=== PATIENT | female | born 1960 ===

== ENCOUNTER 2017-04-29 15:38 | Emergency (ER) | payer OTHER ==
[2017-04-29 16:06] VITALS: TEMP 98.8; O2SAT 96
--- NOTE | 2017-04-29 17:14 | C.PDOC ---
History Of Present Illness 56 year old patient presents to the ED complaining of a cut to the dorsal aspect of her left foot prior to arrival. Patient states she tripped over a jewelry box on the floor. She notes she was bleeding profusely. Patient denies fever, numbness, weakness, or any other injuries. Time Seen by Provider: 04/29/17 16:34 Chief Complaint (Nursing): Abnormal Skin Integrity History Per: Patient History/Exam Limitations: no limitations Onset/Duration Of Symptoms: Other Current Symptoms Are (Timing): Still Present Quality Of Symptoms: Painful, Other (bleeding) Severity: Mild Pain Scale Rating Of: 3 Recent travel outside of the [place]: No Past Medical History Reviewed: Historical Data, Nursing Documentation, Vital Signs Vital Signs: Last Vital Signs Temp 98.8 F 04/29/17 16:05 Pulse 77 04/29/17 21:06 Resp 18 04/29/17 21:06 BP 143/85 04/29/17 21:06 Pulse Ox 96 05/02/17 13:31 - Medical History PMH: Asthma, HTN Surgical History: Appendectomy Family History: States: Unknown Family Hx - Social History Hx Alcohol Use: No Hx Substance Use: No - Immunization History Hx Tetanus Toxoid Vaccination: No Hx Influenza Vaccination: Yes Hx Pneumococcal Vaccination: No Review Of Systems Constitutional: Negative for: Fever Musculoskeletal: Positive for: Foot Pain (left) Skin: Positive for: Other (left foot laceration) Neurological: Negative for: Weakness, Numbness Physical Exam - Physical Exam Appears: Non-toxic, No Acute Distress Skin: Warm, Dry, Other (approx 5 cm laceration across dorsum of left foot; laceration shallow at proximal end, angles down and deeper at distal portion. swollen at site of laceration, clotted blood present. ) Extremity: Normal ROM Pulses: Left Dorsalis Pedis: Normal, Right Dorsalis Pedis: Normal Neurological/Psych: Oriented x3, Normal Speech, Normal Cognition, Normal Motor, Normal Sensation ED Course And Treatment O2 Sat by Pulse Oximetry: 96 (room air) Pulse Ox Interpretation: Normal Laceration - Laceration Repair left foot Wound Length (In cm): 5 Description Of Wound: Linear (shallow at proximal end, deeper at distal end) Wound Cleansed With: Betadine Anesthesia: Lidocaine 1% Wound Examination: Irrigated With Saline, No FB With Wound Exploration, No Tendon Injury With Wound Exploration Wound Closure: Suture (2 deep 4-0 absorbable, 6 sutures 4-0 ethilon) Suture Technique And Material Used: Interrupted Wound Complexity: Intermediate Disposition Counseled Patient/Family Regarding: Diagnosis, Need For Followup - Disposition Disposition: HOME/ ROUTINE Disposition Time: 20:50 Condition: STABLE Additional Instructions: Keep foot bandaged until tomorrow. Keep foot elevated when possible, apply cold compresses to foot, wear orthopedic shoe for comfort. Tylenol for pain if needed. Suture removal in 10 days. Return to ER for any bleeding or any other concerns. Instructions: Care For Your Stitches (ED), Laceration (ED) Forms: Gen Discharge Inst [place]ish Print Language: CITIZ[place] - Clinical Impression Clinical Impression: Laceration of foot, left, complicated - PA / COMBAT CONTROL MANAGER / Resident Statement MD/DO has reviewed & agrees with the documentation as recorded. - Scribe Statement The provider has reviewed the documentation as recorded by the Scribe Unique Moore All medical record entries made by the Scribe were at my direction and personally dictated by me. I have reviewed the chart and agree that the record accurately reflects my personal performance of the history, physical exam, medical decision making, and the department course for this patient. I have also personally directed, reviewed, and agree with the discharge instructions and disposition.
[2017-04-29] MEDS ORDERED: Bacitracin 500 Units/gm Oint Foilpak UD TOP ONE (18:09)
[2017-04-29] MEDS ORDERED: Lidocaine 1% Inj (20ml) INFIL ONE (18:09)
[2017-04-29] MEDS ORDERED: Lidocaine 1% Inj (20ml) ONE (18:18)
[2017-04-29] MEDS ORDERED: Bacitracin 500 Units/gm Oint Foilpak UD ONE (18:22)
[2017-04-29 21:07] VITALS: BP 143/85; PULSE 77; RESP 18
--- NOTE | 2017-04-30 08:47 | RAD ---
PROCEDURE: Left Foot Radiographs. HISTORY: trauma eval for fx COMPARISON: None. FINDINGS: BONES: Normal. No fracture. JOINTS: Normal. SOFT TISSUES: Normal. OTHER FINDINGS: None. IMPRESSION: Normal left foot radiographs.
== END 2017-04-29 21:06 | disposition home or self-care (01) ==
LOC: C.ER 15:38
DX: S91.312A Laceration without foreign body, left foot, initial encounter (principal); W18.40XA Slipping, tripping and stumbling without falling, unspecified, initial encounter; I10 Essential (primary) hypertension

== ENCOUNTER 2017-05-09 20:58 | Emergency (ER) | payer OTHER ==
[2017-05-09 21:13] VITALS: BP 151/90; PULSE 96; RESP 20; TEMP 99; O2SAT 99
--- NOTE | 2017-05-09 21:22 | C.PDOC ---
History Of Present Illness Patient is a 56 year old female who presents to the ER for removal of stitches from her left foot. Patient complains of pain to the left foot around the site of the wound. Denies fever or chills. Time Seen by Provider: 05/09/17 21:09 Chief Complaint (Nursing): Abnormal Skin Integrity History Per: Patient History/Exam Limitations: no limitations Onset/Duration Of Symptoms: Days Current Symptoms Are (Timing): Still Present Location Of Injury: Left: Foot Quality Of Symptoms: Painful Recent travel outside of the [place]: No Past Medical History Reviewed: Historical Data, Nursing Documentation, Vital Signs Vital Signs: Last Vital Signs Temp 99 F 05/09/17 21:11 Pulse 96 H 05/09/17 21:11 Resp 20 05/09/17 21:11 BP 151/90 H 05/09/17 21:11 Pulse Ox 99 05/09/17 21:36 - Medical History PMH: Asthma, HTN Surgical History: Appendectomy Family History: States: Unknown Family Hx - Social History Hx Alcohol Use: No Hx Substance Use: No - Immunization History Hx Tetanus Toxoid Vaccination: No Hx Influenza Vaccination: Yes Hx Pneumococcal Vaccination: No Review Of Systems Constitutional: Negative for: Fever, Chills Musculoskeletal: Positive for: Foot Pain (left) Physical Exam - Physical Exam Appears: Non-toxic, No Acute Distress Skin: Warm, Dry Head: Atraumatic, Normacephalic Oral Mucosa: Moist Extremity: Tenderness (Dorsum of left foot), Capillary Refill (Good), No Deformity, Other (Well healing wound to dorsum of left foot. Ecchymosis to dorsum of foot.) Pulses: Left Dorsalis Pedis: Normal, Right Dorsalis Pedis: Normal Neurological/Psych: Oriented x3, Normal Speech, Normal Cognition ED Course And Treatment O2 Sat by Pulse Oximetry: 99 (Room air) Pulse Ox Interpretation: Normal Progress Note: Left foot x-ray ordered. Medical Decision Making Medical Decision Makin sutures removed; wound opens a bit; last [address] and steri- strips applied across entire laceration. pt to return in one week for suturee removal. Disposition Counseled Patient/Family Regarding: Diagnosis, Need For Followup, Rx Given - Disposition Disposition: HOME/ ROUTINE Disposition Time: 22:08 Condition: STABLE Additional Instructions: Return to ER in one week for suture removal, Leave steri strips on, you can wash with them, they will fall off on their own. Tylenol or ibuprofen for pain. Forms: Gen Discharge Inst German - Clinical Impression Clinical Impression: Visit for wound check - Scribe Statement The provider has reviewed the documentation as recorded by the Scribe Jourdan Plata All medical record entries made by the Scribe were at my direction and personally dictated by me. I have reviewed the chart and agree that the record accurately reflects my personal performance of the history, physical exam, medical decision making, and the department course for this patient. I have also personally directed, reviewed, and agree with the discharge instructions and disposition.
--- NOTE | 2017-05-10 10:55 | RAD ---
PROCEDURE: Left Foot Radiographs. HISTORY: pain and swelling dorsum foot COMPARISON: 04/29/2017. FINDINGS: BONES: Bone alignment and mineralization are normal. No acute fracture or bone destruction. JOINTS: Normal. SOFT TISSUES: There is mild dorsal soft tissue swelling. OTHER FINDINGS: None. IMPRESSION: No acute fracture or bone destruction. Mild dorsal soft tissue swelling could represent cellulitis.
== END 2017-05-09 22:13 | disposition home or self-care (01) ==
LOC: C.ER 20:58
DX: Z51.89 Encounter for other specified aftercare (principal)

== ENCOUNTER 2017-05-22 21:45 | Emergency (ER) | payer OTHER ==
[2017-05-22 22:00] VITALS: BP 155/98; PULSE 77; RESP 18; TEMP 98.5; O2SAT 99
[2017-05-22] MEDS ORDERED: Bacitracin 500 Units/gm Oint Foilpak UD TOP ONE (23:11)
[2017-05-22] MEDS ORDERED: Bacitracin 500 Units/gm Oint Foilpak UD ONE (23:13)
[2017-05-22] MEDS ORDERED: Amoxicillin-Clav 875-125 mg Tab PO STA (23:19)
--- NOTE | 2017-05-22 23:20 | C.PDOC ---
Time Seen by Provider: 05/22/17 22:49 Chief Complaint (Nursing): Suture/Staple Removal History Per: Patient, Family Onset/Duration Of Symptoms: Days Ago (about 3 weeks ago), Laceration Current Symptoms Are (Timing): Still Present Location Of Injury: Left: Foot Quality Of Symptoms: Painful, Swollen Severity: Moderate Additional History Per: Prior Records Past Medical History Reviewed: Historical Data, Nursing Documentation, Vital Signs Vital Signs: Last Vital Signs Temp 98.5 F 05/22/17 21:57 Pulse 77 05/22/17 21:57 Resp 18 05/22/17 21:57 BP 155/98 H 05/22/17 21:57 Pulse Ox 99 05/22/17 23:20 - Medical History PMH: Asthma, HTN Surgical History: Appendectomy Family History: States: Unknown Family Hx - Social History Hx Alcohol Use: No Hx Substance Use: No - Immunization History Hx Tetanus Toxoid Vaccination: No Hx Influenza Vaccination: Yes Hx Pneumococcal Vaccination: No Review Of Systems Except As Marked, All Systems Reviewed And Found Negative. Constitutional: Negative for: Fever, Weakness Cardiovascular: Negative for: Chest Pain Respiratory: Negative for: Shortness of Breath Gastrointestinal: Negative for: Vomiting, Abdominal Pain Musculoskeletal: Positive for: Foot Pain (left). Negative for: Neck Pain, Leg Pain Neurological: Negative for: Weakness, Numbness, Seizures, Altered Mental Status Physical Exam - Physical Exam Appears: Non-toxic, No Acute Distress Skin: Warm, Dry Head: Atraumatic, Normacephalic Neck: Normal ROM, Supple Extremity: Normal ROM, Tenderness (around wound on dorsum of left foot with surrounding erythema), No Pedal Edema, No Calf Tenderness, Capillary Refill (wnl ) Pulses: Left Dorsalis Pedis: Normal Neurological/Psych: Oriented x3, Normal Motor, Normal Sensation ED Course And Treatment O2 Sat by Pulse Oximetry: 99 Pulse Ox Interpretation: Normal Progress Note: Wound appears to have not healed well. I removed the remaining suture, but pt needs to be started on antibiotics and f/up with Podiatry. Disposition Counseled Patient/Family Regarding: Diagnosis, Need For Followup, Rx Given - Disposition Referrals: Amando Hardy MD [Primary Care Provider] - Podiatry Clinic [Outside] Disposition: HOME/ ROUTINE Disposition Time: 23:24 Condition: IMPROVED Additional Instructions: Keep your wound clean and dressed. Follow up with your primary doctor within 1- 2 days. Follow up with a Net Developer Architect (Foot doctor) for further evaluation and treatment. Return to the ER if you develop fever, worsening of symptoms or if you have any other concerns. Prescriptions: Amoxicillin/Clavulanate [Augmentin 875 MG-125 MG] 1 tab PO BID #20 tab Sulfamethoxazole/Trimethoprim [Bactrim DS 800 mg-160 mg] 1 tab PO BID #20 tab Instructions: Wound Infection (ED) Print Language: IRANIAN - Clinical Impression Clinical Impression: Removal of suture, Infected laceration
[2017-05-22] MEDS ORDERED: Tmp-Smz 800 mg-160 mg DS Tab PO STA (23:21)
[2017-05-22] MEDS ORDERED: Tmp-Smz 800 mg-160 mg DS Tab ONE (23:31)
[2017-05-22] MEDS ORDERED: Amoxicillin-Clav 875-125 mg Tab PO ONE (23:31)
== END 2017-05-22 23:35 | disposition home or self-care (01) ==
LOC: C.ER 21:45 → SUPCPDRO 21:45 → C.ER 23:35
DX: Z48.02 Encounter for removal of sutures (principal); L08.89 Other specified local infections of the skin and subcutaneous tissue